=== PATIENT | male | born 1975 | race Caucasian/White ===

== ENCOUNTER 2017-06-01 07:39 | Inpatient (IN) | payer MEDICAID ==
[~2017-06-01] VITALS: Ht 170.2 cm; Wt 64.4 kg
[2017-06-01] MEDS ORDERED: IV NS 1000 ML 1,000 ML IV ONE (08:00)
--- NOTE | 2017-06-01 08:01 | NUR ---
PT IS IN ROOM #1B. DR VILLAVICENCIO EVALUATED THE PT.
[2017-06-01 08:30] LABS: BASOPHILS % (AUTO) 0.2 % (0.0-2.0); EOSINOPHILS % (AUTO) 0.4 % (0.0-7.0); HEMATOCRIT 42.6 % (36.7-47.1); HEMOGLOBIN 14.6 g/dL (12.5-16.3); LYMPHOCYTES # (AUTO) 1.4 K/uL (20.0-40.0); LYMPHOCYTES % (AUTO) 19.9 % (20.5-51.5); MEAN CORPUSCULAR HEMOGLOBIN 30.3 uug (23.8-33.4); MEAN CORPUSCULAR HGB CONC 34 g/dL (32.5-36.3); MEAN CORPUSCULAR VOLUME 88.6 fL (73.0-96.2); MONOCYTES # (AUTO) 0.5 K/uL (2.0-10.0); NEUTROPHILS # (AUTO) 5.3 K/uL (1.8-8.9); NEUTROPHILS % (AUTO) 72.5 % (38.5-71.5); PLATELET COUNT (AUTO) 202 K/uL (152-348); RED BLOOD CELL COUNT(AUTO) 4.81 MIL/uL (4.06-5.63); WHITE BLOOD COUNT (AUTO) 7.3 K/uL (3.6-10.2)
[2017-06-01 08:34] LABS: POTASSIUM 3.4 mmol/L (3.5-5.1)
[2017-06-01 08:41] LABS: BILIRUBIN,TOTAL 0.5 mg/dL (0.2-1.0); TOTAL PROTEIN, SERUM 7.2 g/dL (6.4-8.2)
[2017-06-01] MEDS ORDERED: ASPIRIN 81 MG TAB.CHEW PO ONE (09:15)
[2017-06-01] MEDS ORDERED: MORPHINE SULFATE 2 MG/1 ML DISP.SYRIN IV ONE (09:21)
[2017-06-01] MEDS ORDERED: PANTOPRAZOLE SODIUM IV 40 MG in IV DEXTROSE 5% 100 ML IV ONE ×2 (09:21→09:30)
[2017-06-01] MEDS ORDERED: ONDANSETRON IV *ER 4 MG/2 ML VIAL IV ONE (09:30)
[2017-06-01] MEDS ORDERED: ASPIRIN 81 MG TAB.CHEW ONE (09:36)
[2017-06-01] MEDS ORDERED: MORPHINE SULFATE 2 MG/1 ML DISP.SYRIN ONE (09:44)
--- NOTE | 2017-06-01 09:44 | NUR ---
pt was transfered to room #226. report was given to jewel corner brushing machine operator.
[2017-06-01] MEDS ORDERED: ONDANSETRON 4 MG/2 ML VIAL ONE (09:45)
[2017-06-01] MEDS ORDERED: PANTOPRAZOLE SODIUM 40 MG VIAL ONE (09:45)
[2017-06-01] MEDS ORDERED: NITROGLYCERIN 0.4 MG/TAB BOTTLE SL PRN (10:15)
[2017-06-01] MEDS ORDERED: ASPIRIN 81 MG TAB.CHEW PO SCH (10:15)
[2017-06-01] MEDS ORDERED: ACETAMINOPHEN 325 MG TABLET PO PRN (10:15)
[2017-06-01] MEDS ORDERED: ONDANSETRON 4 MG/2 ML VIAL IV PRN (10:15)
[2017-06-01] MEDS ORDERED: METOPROLOL TARTRATE 50 MG TABLET PO SCH (10:15)
[2017-06-01 10:37] VITALS: BP 105/71
[2017-06-01] MEDS: METOPROLOL TARTRATE 25 MG TABLET PO SCH ×2 (11:51→20:21)
[2017-06-01 12:02] VITALS: BP 106/73
[2017-06-01] MEDS ORDERED: POTASSIUM CHLORIDE 20 MEQ TAB.PRT.SR PO ONE (13:00)
[2017-06-01] MEDS ORDERED: IV NORMAL SALINE 250 ML IV ONE (13:07)
[2017-06-01] MEDS ORDERED: IOHEXOL 300MG/ML 100 ML INFUS..BTL ONE (13:07)
[2017-06-01] MEDS: PANTOPRAZOLE SODIUM 40 MG VIAL IV SCH ×2 (14:22→20:27)
[2017-06-01] MEDS: IV NS 1000 ML 1,000 ML IV PRN (15:35)
[2017-06-01 15:57] VITALS: BP 107/72
[2017-06-01 20:04] VITALS: BP 95/48
[2017-06-02] VITALS (7 sets, daily range): BP systolic 90–112; BP diastolic 47–66
[2017-06-02] MEDS: IV NS 1000 ML 1,000 ML IV PRN (00:23)
[2017-06-02 06:33] LABS: BASOPHILS % (AUTO) 0.3 % (0.0-2.0); EOSINOPHILS # (AUTO) 0.1 K/uL (0.0-0.7); EOSINOPHILS % (AUTO) 0.7 % (0.0-7.0); HEMATOCRIT 41.1 % (36.7-47.1); HEMOGLOBIN 14.1 g/dL (12.5-16.3); LYMPHOCYTES # (AUTO) 1.8 K/uL (20.0-40.0); LYMPHOCYTES % (AUTO) 20.8 % (20.5-51.5); MEAN CORPUSCULAR HEMOGLOBIN 30.2 uug (23.8-33.4); MEAN CORPUSCULAR HGB CONC 34 g/dL (32.5-36.3); MEAN CORPUSCULAR VOLUME 88.1 fL (73.0-96.2); MONOCYTES # (AUTO) 0.5 K/uL (2.0-10.0); MONOCYTES % (AUTO) 5.4 % (0.0-11.0); NEUTROPHILS # (AUTO) 6.3 K/uL (1.8-8.9); NEUTROPHILS % (AUTO) 72.8 % (38.5-71.5); PLATELET COUNT (AUTO) 202 K/uL (152-348); RED BLOOD CELL COUNT(AUTO) 4.67 MIL/uL (4.06-5.63); WHITE BLOOD COUNT (AUTO) 8.7 K/uL (3.6-10.2)
[2017-06-02 06:38] LABS: CREATININE 0.9 mg/dL (0.6-1.3); MAGNESIUM 1.6 mg/dL (1.8-2.4); PHOSPHOROUS 3.4 mg/dL (2.5-4.9); POTASSIUM 3.9 mmol/L (3.5-5.1)
--- NOTE | 2017-06-02 07:00 | NUR ---
Slept at intervals. No report of chest pain. Sinus rhythm on the monitor.
[2017-06-02] MEDS: PANTOPRAZOLE SODIUM 40 MG VIAL IV SCH (08:42)
[2017-06-02] MEDS: MAGNESIUM SULFATE/D5W 100 ML IV SCH ×4 (10:09→12:08)
--- NOTE | 2017-06-02 16:03 | NUR ---
PT. SLEEPING INTERMITTENTLY THROUGHOUT SHIFT. MAGNESIUM SULFATE INFUSED PER MAR WITH NO UNTOWARD EFFECT. PT. DENIES CP OR SOB ALL SHIFT. TOLERATING REGULAR FOOD WITH NOT NAUSEA OR PAIN REPORTED. PT. TOOK A SHOWER. DISCHARGE INSTRUCTIONS AND RX PROVIDED AND VERBALIZED UNDERSTANDING. IV REMOVED WITH INNER CANNULA INTACT. NOW WAITING FOR A RIDE.
--- NOTE | 2017-06-02 17:00 | NUR ---
PT. LEFT UNIT WITH ALL BELONGINGS BY FOOT TO WAITING CAR.
== END 2017-06-02 17:20 | disposition home or self-care (01) | DRG 241 ==
LOC: ER 07:39 → TELE 09:47 → MED 06-02 10:15
PROVIDERS: ADMIT Internal Medicine; ATTEND Internal Medicine
DX: K29.70 Gastritis, unspecified, without bleeding (principal); E88.09 Other disorders of plasma-protein metabolism, not elsewhere classified; F10.20 Alcohol dependence, uncomplicated; E87.6 Hypokalemia; F17.210 Nicotine dependence, cigarettes, uncomplicated; K59.00 Constipation, unspecified; K20.9 Esophagitis, unspecified
CPT/HCPCS: 36415; 70030-TC; 83690; 83735; 84100; 85025; 85610; 93005; 93307; A4663; C9113; J2270; J2405; J3475; J7030; J7050; Q9967